=== PATIENT | female | born 1985 | race African-American/Black ===

== ENCOUNTER 2019-01-04 22:33 | Emergency (ER) | payer MEDICAID ==
[~2019-01-04] VITALS: Ht 175.3 cm; Wt 81.6 kg
--- NOTE | 2019-01-04 22:42 | NUR ---
PATIENT BIB FOR POSSIBLE OVERDOSE ON HER KEPPRA MEDICATION. PER PATIENT FORGET SHE HAD ALREADY TOOK HER NIGHTLY DOSE OF KEPPRA AT 2100 TODAY AND ACCIDENTLY TOOK ANOTHER DOSE OF KEPPRA 2000MG 45MINS LATER. DENIES SI,SOB,HOMICIDAL IDEATION. NO DISTRESS NOTED
--- NOTE | 2019-01-04 22:50 | NUR ---
DR OLIVERA SPOKE WITH POISON CONTROL ABOUT INCIDENT
[2019-01-04 22:57] VITALS: BP 115/66
--- NOTE | 2019-01-04 22:59 | NUR ---
Patient discharged to home in stable conditon WITH TAKING PATIENT HOME. Written and verbal after care instructions given. Patient verbalizes understanding of instructions. WALKED OUT OF ER WITH NO DISTRESS NOTED.
== END 2019-01-04 22:59 | disposition home or self-care (01) ==
LOC: ER 22:42
DX: T42.6X1A Poisoning by other antiepileptic and sedative-hypnotic drugs, accidental (unintentional), initial encounter (principal); J45.909 Unspecified asthma, uncomplicated; Y92.89 Other specified places as the place of occurrence of the external cause
CPT/HCPCS: A4663

== ENCOUNTER 2019-01-22 16:12 | Emergency (ER) | payer MEDICAID ==
[~2019-01-22] VITALS: Ht 175.3 cm; Wt 83.9 kg
--- NOTE | 2019-01-22 16:31 | NUR ---
PT IS IN ROOM 32B. DR MIMS EVALUATED THE PT.
[2019-01-22] MEDS ORDERED: IV NORMAL SALINE 1000 ML BAG IV ONE ×2 (17:15→18:45)
[2019-01-22 17:22] LABS: *BILIRUBIN,URIN NEGATIVE (NEGATIVE); *BLOOD, URINE 2+ (NEGATIVE); *CLARITY,URINE CLEAR (CLEAR); *COLOR,URINE YELLOW (YELLOW); *KETONES,URINE NEGATIVE (NEGATIVE); *UROBILINOGEN,URINE 0.2 E.U./dl (NORMAL); LEUKOCYTE ESTERASE ,URINE NEGATIVE (NEGATIVE); NITRITE, URINE NEGATIVE (NEGATIVE); UGLUCOSE NEGATIVE (NEGATIVE)
[2019-01-22 17:23] LABS: BASOPHILS % (AUTO) 0.5 % (0.0-2.0); EOSINOPHILS # (AUTO) 0.1 K/uL (0.0-0.7); EOSINOPHILS % (AUTO) 2.4 % (0.0-7.0); HEMOGLOBIN 11.7 g/dL (10.9-14.3); LYMPHOCYTES # (AUTO) 1.7 K/uL (20.0-40.0); LYMPHOCYTES % (AUTO) 33.6 % (20.5-51.5); MEAN CORPUSCULAR HEMOGLOBIN 26.1 uug (24.7-32.8); MEAN CORPUSCULAR HGB CONC 33 g/dL (32.3-35.6); MEAN CORPUSCULAR VOLUME 79.9 fL (75.5-95.3); MONOCYTES # (AUTO) 0.4 K/uL (2.0-10.0); MONOCYTES % (AUTO) 8.3 % (0.0-11.0); NEUTROPHILS # (AUTO) 2.9 K/uL (1.8-8.9); NEUTROPHILS % (AUTO) 55.2 % (38.5-71.5); PLATELET COUNT (AUTO) 298 K/uL (179-408); RED BLOOD CELL COUNT(AUTO) 4.51 MIL/uL (3.63-4.92); WHITE BLOOD COUNT (AUTO) 5.2 K/uL (3.8-11.8)
[2019-01-22 17:39] LABS: CREATININE 0.8 mg/dL (0.6-1.3); POTASSIUM 4.4 mmol/L (3.5-5.1)
[2019-01-22 17:40] LABS: WBC,URINE 0-3 /HPF (0-3)
[2019-01-22 17:41] LABS: BACTERIA,URINE NONE SEEN /HPF (NONE SEEN); SQUAMOUS EPITHELIAL CELL,UR FEW /HPF (NONE SEEN)
[2019-01-22 17:45] LABS: BILIRUBIN,DIRECT 0.1 mg/dL (0.0-0.2); BILIRUBIN,TOTAL 0.3 mg/dL (0.2-1.0); TOTAL PROTEIN, SERUM 7.3 g/dL (6.4-8.2)
--- NOTE | 2019-01-22 19:03 | NUR ---
REPORT WAS GIVEN TO VP STRATEGY GALINA MICHELE
--- NOTE | 2019-01-22 19:17 | NUR ---
RECEIVED REPORT FROM GALINA MORAN.
--- NOTE | 2019-01-22 19:20 | NUR ---
Assess patient. Patient denies any dizziness/pain/discomfort at this time. will continue to monitor. Fiance at bedside.
[2019-01-22 19:56] VITALS: BP 129/79
== END 2019-01-22 19:45 | disposition home or self-care (01) ==
LOC: ER 16:14
DX: I95.1 Orthostatic hypotension (principal); J45.909 Unspecified asthma, uncomplicated
CPT/HCPCS: 36415; 70030-TC; 71045; 83605; 85025; 93005; A4663; J7030

== ENCOUNTER 2019-06-13 20:55 | Emergency (ER) | payer MEDICAID ==
[~2019-06-13] VITALS: Ht 175.3 cm; Wt 87.5 kg
[2019-06-13] MEDS ORDERED: LACO50TA2 PO (21:08)
[2019-06-13] MEDS ORDERED: SERT50TA PO (21:08)
[2019-06-13] MEDS ORDERED: LEVE1000 PO (21:08)
--- NOTE | 2019-06-13 21:32 | NUR ---
Patient discharged to home in stable conditon. Written and verbal after care instructions given. Patient verbalizes understanding of instructions. AMBULATORY W/ STABLE GAIT ALL BELONGINGS W/ PT BOYFRIEND WILL DRIVE
[2019-06-13 21:33] VITALS: BP 110/79
== END 2019-06-13 21:33 | disposition home or self-care (01) ==
LOC: ER 21:00
DX: G25.9 Extrapyramidal and movement disorder, unspecified (principal); J45.909 Unspecified asthma, uncomplicated; Z79.899 Other long term (current) drug therapy
CPT/HCPCS: A4663